=== PATIENT | male | born 1935 ===

== ENCOUNTER 2021-03-04 15:52 | Outpatient (NON) | payer MEDICARE, SELFPAY ==
[2021-03-04 16:54] LABS: Anion Gap 10 mmol/L (8-16); Blood Urea Nitrogen 23 mg/dL (7-18); Calcium 9.2 mg/dL (8.5-10.1); Carbon Dioxide 31 mmol/L (21-32); Chloride 98 mmol/L (98-108); Estimated Glomerular Filt Rate 57; Glucose 93 mg/dL (70-99); NT Pro B Type Natriuretic Pept 5942 pg/mL (0-450); Osmolality Calculated 291 mOsm/kg (285-295); Potassium 4.3 mmol/L (3.5-5.1); Sodium 139 mmol/L (136-145)
== END 2021-03-04 15:53 | disposition home or self-care (01) ==
LOC: CHSLAB 16:15
DX: I11.0 Hypertensive heart disease with heart failure (principal); I50.22 Chronic systolic (congestive) heart failure
CPT/HCPCS: 36415; 80048; 83880